=== PATIENT | female | born 1950 | race Caucasian/White ===

== ENCOUNTER 2018-11-04 11:13 | Emergency (ER) | payer MEDICARE, BC ==
[~2018-11-04] VITALS: Ht 167.6 cm; Wt 101.4 kg
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
--- NOTE | 2018-11-04 11:52 | NUR ---
LEVEL 1 STROKE ALERT HEADING DOWN TO CT WITH STROKE NURSE ROBERTO ROMERO
[2018-11-04 11:57] LABS: BASOPHILS # (AUTO) 0.1 X10'3 (0-0.2); BASOPHILS % (AUTO) 0.9 % (0-1); EOSINOPHILS # (AUTO) 0.4 X10'3 (0-0.9); EOSINOPHILS % (AUTO) 3.2 % (0-6); HEMATOCRIT 36.5 % (35.0-45.0); HEMOGLOBIN 12.3 g/dl (12.0-16.0); LYMPHOCYTES # (AUTO) 2.3 X10'3 (1.1-4.8); LYMPHOCYTES % (AUTO) 19.8 % (21-51); MEAN CORPUSCULAR HEMOGLOBIN 29.3 PG (27.0-31.0); MEAN CORPUSCULAR HGB CONC 33.6 g/dL (33.0-36.5); MEAN CORPUSCULAR VOLUME 87.3 FL (78-98); MEAN PLATELET VOLUME 9.2 FL (7.4-10.4); MONOCYTES # (AUTO) 0.9 X10'3 (0-0.9); MONOCYTES % (AUTO) 7.4 % (2-12); NEUTROPHILS # (AUTO) 7.9 X10'3 (1.8-7.7); NEUTROPHILS % (AUTO) 68.7 % (42-75); PLATELET COUNT 294 X10'3 (140-440); RED BLOOD COUNT 4.18 X10'6 (4.20-5.60); RED CELL DISTRIBUTION WIDTH 13.5 % (11.5-14.5); WHITE BLOOD COUNT 11.5 X10'3 (4.5-11.0)
[2018-11-04 12:10] LABS: PARTIAL THROMBOPLASTIN TIME 28 SECONDS (22-32)
[2018-11-04 12:11] LABS: ALANINE AMINOTRANSFERASE 12 U/L (12-78); ALBUMIN 3.5 G/DL (3.4-5.0); ALBUMIN/GLOBULIN RATIO 0.7 (1.1-1.5); ALKALINE PHOSPHATASE 93 IU/L (46-116); ANION GAP 10 (8-16); ASPARTATE AMINO TRANSFERASE 12 U/L (10-37); BILIRUBIN,TOTAL 0.4 MG/DL (0.1-1.0); BLOOD UREA NITROGEN 16 MG/DL (7-18); BUN/CREATININE RATIO 18.4 (6.6-38.0); CALCIUM 8.8 MG/DL (8.5-10.1); CHLORIDE 105 MMOL/L (99-107); CREATININE 0.87 MG/DL (0.40-0.90); GLUCOSE 94 MG/DL (70-104); POTASSIUM 4.2 MMOL/L (3.5-5.1); SODIUM 141 MMOL/L (135-145); TOTAL CARBON DIOXIDE 26.5 MMOL/L (24-32); TOTAL PROTEIN 8.4 G/DL (6.4-8.2); eGFR 65 ML/MIN
[2018-11-04 12:15] LABS: TROPONIN I < 0.04 NG/ML (0.0-0.05)
--- NOTE | 2018-11-04 12:24 | NUR ---
PETEY STROKE NURSE CONTINUED TO EVALUATE AND MONITOR PT AT BEDSIDE NOW, PT BEING COORDINATED TO TRANSFER TO [facility] BY DAHLIA MICHAUD.
--- NOTE | 2018-11-04 13:51 | NUR ---
Per ROBERTO Sahu, Stroke alert called off at 1215.
--- NOTE | 2018-11-04 14:41 | NUR ---
attempted to call report to Timothy johnson at [facility] nurse is unwilling to take report at this time will try back later
--- NOTE | 2018-11-04 15:06 | NUR ---
attempted 2nd time to try to call report ROBERTO Lowery saying she still is unable to take report at this time
[2018-11-04] MEDS ORDERED: acetaminophen 325mg tablet PO ONE (16:45)
[2018-11-04 18:28] VITALS: BP 181/79
--- NOTE | 2018-11-04 18:30 | NUR ---
PT SIYBOBBI AT BEDSIDE A[facility]NG TRANSOIRTATION TO [facility]. ALL VSS POC UPDATED ,
== END 2018-11-04 18:45 | disposition short-term general hospital (02) ==
LOC: ER 11:15
DX: G93.89 Other specified disorders of brain (principal); I10 Essential (primary) hypertension; J44.9 Chronic obstructive pulmonary disease, unspecified; R79.1 Abnormal coagulation profile; Z90.49 Acquired absence of other specified parts of digestive tract; Z90.710 Acquired absence of both cervix and uterus; Z98.890 Other specified postprocedural states
CPT/HCPCS: 36415; 70450; 71045; 80053; 82948; 84484; 85025; 85610; 85730; 93005; 99285